=== PATIENT | male | born 1945 | race Caucasian/White ===

== ENCOUNTER 2018-04-10 10:24 | Outpatient (CLI) | payer MEDICARE ==
[2018-04-10 19:42] LABS: ALBUMIN 3.9 g/dL (3.2-5.5); ALKALINE PHOSPHATASE 60 IU/L (42-121); ALT ALANINE AMINOTRANSFERASE 34 IU/L (10-60); AST ASPARTATE AMINOTRANSFERASE 35 IU/L (10-42); BILIRUBIN,TOTAL 1.6 mg/dL (0.2-1.0); BUN - BLOOD UREA NITROGEN 21 mg/dL (6-20); CALCIUM 9.3 mg/dL (8.5-10.3); CARBON DIOXIDE - CO2 25 mmol/L (21-32); CHLORIDE 105 mmol/L (101-111); CHOL/HDL RATIO 4.5 (<5.0); CHOLESTEROL 166 mg/dL; CREATININE 0.9 mg/dL (0.6-1.2); GFR - MDRD 82 (>89); GLUCOSE 97 mg/dL (70-100); HDL CHOLESTEROL 37 mg/dL; LDL CHOLESTEROL,CALCULATED 104 mg/dL; LDL/HDL RATIO 2.8 (<3.6); SODIUM 137 mmol/L (135-145); TOTAL PROTEIN 7.7 g/dL (6.7-8.2); VLDL CHOLESTEROL 25 mg/dL
== END 2018-04-10 10:25 | disposition home or self-care (01) ==
LOC: LAB.F 10:24
PROVIDERS: ATTEND Internal Medicine
DX: E78.00 Pure hypercholesterolemia, unspecified (principal); E03.9 Hypothyroidism, unspecified
CPT/HCPCS: 80053; 80061; 83721; 84443

== ENCOUNTER 2018-09-19 12:15 | Emergency (ER) | payer MEDICARE ==
[2018-09-19 12:35] LABS: BILIRUBIN,URINE NEGATIVE (NEGATIVE); GLUCOSE, URINE (UA) NEGATIVE (NEGATIVE); KETONES,URINE (UA) NEGATIVE (NEGATIVE); LEUKOCYTE ESTERASE, URINE NEGATIVE (NEGATIVE); NITRITE,URINE NEGATIVE (NEGATIVE); OCCULT BLOOD,URINE NEGATIVE (NEGATIVE); PH,URINE 5.5 PH (5.0-7.5); PROTEIN,URINE NEGATIVE (NEGATIVE); UROBILINOGEN,URINE 0.2 (NORMAL) E.U./dL (NORMAL)
[2018-09-19 12:40] LABS: CLARITY,URINE CLEAR (CLEAR)
[2018-09-19] MEDS ORDERED: ACETAMINOPHEN 1,000 MG/100 ML 100 ML IV STA (13:07)
[2018-09-19] MEDS ORDERED: IOVERSOL 320 100 ML VIAL IVP ONE ×2 (13:15→14:23)
[2018-09-19 13:59] LABS: ALBUMIN 4.4 g/dL (3.2-5.5); ALBUMIN/GLOBULIN RATIO 1.3 (1.0-2.2); CALCIUM 9.4 mg/dL (8.5-10.3); CREATININE 0.8 mg/dL (0.6-1.2); TOTAL PROTEIN 7.8 g/dL (6.7-8.2)
[2018-09-19 14:07] LABS: BASOPHILS % (AUTO) 0.4 %; EOSINOPHILS # (AUTO) 0.2 10^3/uL (0.0-0.7); EOSINOPHILS % (AUTO) 3.1 %; HGB - HEMOGLOBIN 14.5 g/dL (14.0-18.0); LYMPHOCYTES # (AUTO) 1.5 10^3/uL (1.5-3.5); LYMPHOCYTES % (AUTO) 28.1 %; MEAN CORPUSCULAR HEMOGLOBIN 30.9 pg (27.0-31.0); MEAN CORPUSCULAR HGB CONC 34.6 g/dL (32.0-36.0); MEAN CORPUSCULAR VOLUME 89.3 fL (80.0-94.0); MEAN PLATELET VOLUME 7.6 fL (7.4-11.4); MONOCYTES # (AUTO) 0.5 10^3/uL (0.0-1.0); NEUTROPHILS # (AUTO) 3.3 10^3/uL (1.5-6.6); NEUTROPHILS % (AUTO) 59.4 %; PLT - PLATELET COUNT 221 10^3/uL (130-450); RED CELL DISTRIBUTION WIDTH 14.3 % (12.0-15.0); WHITE BLOOD COUNT 5.5 x10^3/uL (4.8-10.8)
--- NOTE | 2018-09-19 14:35 | ED Physician Documentation ---
History of Present Illness - Stated complaint Stated Complaint: LOWER RT SIDE BACK PX - Chief complaint Chief Complaint: Back Pain - Additonal information Additional information: hx from pt 73 male known infrarenal aneurysm 2 weeks of insidious onset back pain sharp worse with ROMB no abd pain no urinary incont dysuria hematuria no numbness to legs or groin desiree weakness no fever no recent surgery dental work IV IM meds / drugs Review of Systems Constitutional: denies: Fever, Chills Cardiac: denies: Chest pain / pressure Respiratory: denies: Dyspnea GI: denies: Abdominal Pain, Nausea, Vomiting : denies: Dysuria, Incontinent, Hematuria Immunocompromised: denies: Immunocompromised PD PAST MEDICAL HISTORY - Past Medical History Cardiovascular: Hypertension, High cholesterol, Other Respiratory: Sleep apnea Endocrine/Autoimmune: Other GI: Cholelithiasis : Benign prostate hypertrophy HEENT: None Psych: None Musculoskeletal: Other Derm: None Other Past Medical History: AAA - Past Surgical History Past Surgical History: Yes General: Cholecystectomy, Other HEENT: Tonsil/Adenoidectomy, Other - Present Medications Home Medications: Ambulatory Orders Medication Instructions Recorded Confirmed Simvastatin 20 mg PO DAILY 06/07/13 09/19/18 Doxazosin Mesylate 4 mg PO DAILY 08/11/14 09/19/18 Levothyroxine Sodium 1 tab PO DAILY 08/11/14 09/19/18 Aspirin [Aspir-Low] 81 mg DAILY 01/14/16 09/19/18 Cyclobenzaprine [Flexeril] 10 mg PO TID PRN #20 tablet 09/19/18 Lanolin 1 applic TP TID PRN #30 oint...g. 09/19/18 Lidocaine Patch 5% [Lidoderm Patch] 1 patch TOP DAILY PRN #10 patch 09/19/18 - Allergies Allergies/Adverse Reactions: Allergies Allergy/AdvReac Type Severity Reaction Status Date / Time No Known Drug Allergies Allergy Verified 09/19/18 12:27 - Social History Does the pt smoke?: No Smoking Status: Never smoker Does the pt drink ETOH?: No Does the pt have substance abuse?: No - Immunizations Immunizations are current?: Yes - POLST Patient has POLST: No PD ED PE NORMAL - Vitals Vital signs reviewed: Yes - Neck Neck: Supple, no meningeal sign - Cardiac Cardiac: RRR - Respiratory Respiratory: No respiratory distress - Abdomen Abdomen: Soft, Non tender, Other (no pulsatile mass) - Back Back: No spinal TTP, Other (R flank region TT s redness swellign or warmth, mild mid L spine TTP also s redness swellign warmth) - Derm Derm: Normal color - Neuro Neuro: Alert and oriented X 3, test cell technician 2-12 intact, No motor deficit, No sensory deficit, Normal speech, Other (nl sensation denies saddle anesthesia, hiip flexion knee ext foot dorsi plantar ext all 5/5, no clonus, neg SLR gretchen) Eye Opening: Spontaneous Motor: Obeys Commands Verbal: Oriented GCS Score: 15 Results - Vitals Vitals: Vital Signs - 24 hr 09/19/18 09/19/18 12:24 14:58 Temperature 36.3 C L Heart Rate 67 57 L Respiratory 18 18 Rate Blood Pressure 148/65 H 134/82 H O2 Saturation 98 96 Oxygen O2 Source Room air - Labs Labs: Laboratory Tests 09/19/18 09/19/18 09/19/18 12:30 13:39 13:39 WBC 5.5 RBC 4.70 Hgb 14.5 Hct 42.0 MCV 89.3 MCH 30.9 MCHC 34.6 RDW 14.3 Plt Count 221 MPV 7.6 Neut # (Auto) 3.3 Lymph # (Auto) 1.5 [place] # (Auto) 0.5 Eos # (Auto) 0.2 Baso # (Auto) 0.0 Absolute Nucleated RBC 0.00 Nucleated RBC % 0.1 Sodium 136 Potassium 4.4 Chloride 103 Carbon Dioxide 25 Anion Gap 8.0 BUN 26 H Creatinine 0.8 Estimated GFR (MDRD) 94 Glucose 99 Calcium 9.4 Total Bilirubin 1.0 AST 40 ALT 37 Alkaline Phosphatase 74 Total Protein 7.8 Albumin 4.4 Globulin 3.4 Albumin/Globulin Ratio 1.3 Lipase 34 Urine Color YELLOW Urine Clarity CLEAR Urine pH 5.5 Ur Specific [place] 1.015 Urine Protein NEGATIVE Urine Glucose (UA) NEGATIVE Urine Ketones NEGATIVE Urine Occult Blood NEGATIVE Urine Nitrite NEGATIVE Urine Bilirubin NEGATIVE Urine Urobilinogen 0.2 (NORMAL) Ur Leukocyte Esterase NEGATIVE Ur Microscopic Review NOT INDICATED Urine Culture Comments NOT INDICATED - Rads (name of study) CTA AP Radiology: See rad report (stable 2.4 infrarenal AAA without rupture, chronic unchanged thrombus and dissection flap, renal cysts otherwsie solid organs unremarkable, no acute process) PD MEDICAL DECISION MAKING - ED course ED course: thankfully CT shows AAA is unchanged neg UA CT neg for acute process will dc pt also concerned about dry cracked lips he has seen PMD and derm and tried all sorts of ointments and meds but sx persist lips dry cracke small erythema to cornes of mouth, no lesions will try lanolin Departure - Departure Disposition: Home, Self Care Clinical Impression: Back pain Qualifiers: Back pain location: low back pain Chronicity: acute Back pain laterality: right Sciatica presence: without sciatica Qualified Code(s): M54.5 - Low back pain Condition: Good Instructions: ED Low Back Pain Injury Prescriptions: Cyclobenzaprine [Flexeril] 10 mg PO TID PRN #20 tablet PRN Reason: Spasms Lanolin 1 applic TP TID PRN #30 oint...g. PRN Reason: cracked lips Lidocaine Patch 5% [Lidoderm Patch] 1 patch TOP DAILY PRN #10 patch PRN Reason: pain Comments: Thankfully the CT did not show any change in the aneurysm - it is exactly the same as before about 2.4 cm in size with a chronic flap and thrombus - all unchanged from prior imaging according to the radiologist Also the kidney looked fine - some cysts but no stones to cause pain So the pain is likely muscular after all. I have prescribed patches you can wear up to 12 hr a day and a muscle relaxant and you can also take tylenol Follow up with your PMD as needed. Return if worse
--- NOTE | 2018-09-19 14:41 | CT Report ---
Reason: known AAA back pain Procedure Date: 09/19/2018 Accession Number: [id number] / [id number] Procedure: CT - Abdomen/Pelvis Angio CPT Code: FULL RESULT: EXAM: CT ANGIOGRAM ABDOMEN AND PELVIS WITH CONTRAST EXAM DATE: 09/19/2018 02:20 PM. CLINICAL HISTORY: Abdominal aortic aneurysm without rupture. COMPARISONS: ABDOMEN ANGIO 01/14/2016 9:09 PM. TECHNIQUE: Routine helical CT angiogram imaging was performed through the abdomen and pelvis in the arterial phase. IV contrast: 100 mL Optiray 320. Enteric contrast: No. Reconstructions: Coronal, sagittal, and 3D MIP reconstructions. In accordance with CT protocol optimization, one or more of the following dose reduction techniques were utilized for this exam: automated exposure control, adjustment of mA and/or KV based on patient size, or use of iterative reconstructive technique. FINDINGS: Vasculature: As before, the abdominal aorta demonstrates moderate calcified and noncalcified atherosclerotic plaque formation similar to prior CT. Mural thrombus and ectasia involving the infrarenal abdominal aorta is again seen, unchanged. The abdominal aorta measures up to 2.4 cm in diameter at this level. There is again noted to be displaced intimal calcification consistent with non-propagating chronic dissection flap (image 80/7). The celiac, SMA, and JESUS branches are diffusely patent. There is mild narrowing of the right renal artery likely due to median arcuate compression. The left renal artery is diffusely patent. The kidneys symmetrically enhance. The iliac and visualized femoral arterial vasculature demonstrates mild tortuosity and minor calcified atherosclerotic disease, otherwise intact. Lung Bases: Normal. Abdominal Solid Organs: Cholecystectomy changes are seen. There is no biliary dilation. A few peripelvic cysts are suggested in the left kidney. Otherwise, liver, spleen, pancreas, adrenal glands, and kidneys are normal in size and demonstrate no masses or abnormal enhancement. Peritoneal Cavity: There is extensive predominantly sigmoid diverticulosis without evidence of diverticulitis. There is no obstruction or ileus. No free fluid or free air. The appendix is normal. Pelvic Organs: Prostate gland is borderline enlarged. The bladder and remainder pelvic structures are unremarkable. Bones: There is moderate diffuse degenerative spondylosis changes of the lumbar spine. Prominent posterior endplate spurring at L1-L2 and L2-L3 causes at least mild narrowing of the bony central canal. Appearance is similar to prior study. Other: None. IMPRESSION: 1. No acute intra-abdominal pathology including no ruptured aortic aneurysm. 2. Moderate atherosclerotic disease of the infrarenal abdominal aorta including stable chronic non-propagating small dissection flap and associated focal ectasia of the abdominal aorta up to 2.4 cm. 3. Moderate multilevel degenerative spondylosis changes of the lumbar spine similar to 01/14/2016 exam. No acute osseous abnormality. 4. Extensive sigmoid diverticulosis without diverticulitis. RADIA
[2018-09-19] MEDS ORDERED: LIDOCAINE PATCH 5% TOP STA (15:17)
[2018-09-19 15:42] VITALS: BP 130/74
== END 2018-09-19 15:41 | disposition home or self-care (01) ==
LOC: ED 12:15
DX: M54.5 Low back pain (principal); I71.4 Abdominal aortic aneurysm, without rupture; I10 Essential (primary) hypertension; E78.00 Pure hypercholesterolemia, unspecified; N28.1 Cyst of kidney, acquired
CPT/HCPCS: 36415; 74174; 80053; 81003; 83690; 85025; 96374; 99283; A9270; J0131; Q9967; 81001; 87086

== ENCOUNTER 2019-05-17 10:17 | Outpatient (CLI) | payer MEDICARE ==
[2019-05-17 18:10] LABS: ALBUMIN/GLOBULIN RATIO 1.2 (1.0-2.2); ALKALINE PHOSPHATASE 64 IU/L (42-121); ALT ALANINE AMINOTRANSFERASE 32 IU/L (10-60); AST ASPARTATE AMINOTRANSFERASE 29 IU/L (10-42); BILIRUBIN,TOTAL 1.2 mg/dL (0.2-1.0); BUN - BLOOD UREA NITROGEN 23 mg/dL (6-20); CALCIUM 9.3 mg/dL (8.5-10.3); CARBON DIOXIDE - CO2 26 mmol/L (21-32); CHLORIDE 108 mmol/L (101-111); CHOL/HDL RATIO 3.2 (<5.0); CHOLESTEROL 123 mg/dL; GFR - MDRD 73 (>89); GLUCOSE 104 mg/dL (70-100); HDL CHOLESTEROL 38 mg/dL; LDL CHOLESTEROL,CALCULATED 69 mg/dL; LDL/HDL RATIO 1.8 (<3.6); SODIUM 140 mmol/L (135-145); TOTAL PROTEIN 7.3 g/dL (6.7-8.2); VLDL CHOLESTEROL 16 mg/dL
--- NOTE | 2019-05-18 10:12 | XRAY Report ---
Reason: OSTEROARTHRITIS, HIPS, BILATERAL Procedure Date: 05/17/2019 Accession Number: [id number] / [id number] Procedure: XRS - Hips 2V BILAT CPT Code: FULL RESULT: EXAM: BILATERAL HIP RADIOGRAPHY EXAM DATE: 05/17/2019 11:07 AM. CLINICAL HISTORY: Osteoarthritis, hips, bilateral. COMPARISON: None. TECHNIQUE: 2 views each. FINDINGS: Bones: Normal. No fractures or bone lesion. Right Hip: Mild joint space narrowing without significant subchondral sclerotic changes at the acetabulum. No significant osteophytic spurring. Left Hip: Moderate narrowing of the joint space, with subchondral sclerotic change of the acetabulum and minimal subchondral cystic changes of the femoral head. Soft Tissues: Normal. No soft tissue swelling. IMPRESSION: Mild right and moderate left degenerative changes at the hips. [facility]
== END 2019-05-17 10:18 | disposition home or self-care (01) ==
LOC: LAB.S 10:17 → DI.S 10:18
PROVIDERS: ATTEND Internal Medicine
DX: M16.0 Bilateral primary osteoarthritis of hip (principal); E78.00 Pure hypercholesterolemia, unspecified; E03.9 Hypothyroidism, unspecified
CPT/HCPCS: 36415; 73521; 80053; 80061; 83721; 84443

== ENCOUNTER 2020-07-17 11:36 | Outpatient (CLI) | payer MEDICARE ==
[2020-07-17 15:08] LABS: BASOPHILS % (AUTO) 0.4 %; EOSINOPHILS # (AUTO) 0.1 10^3/uL (0.0-0.7); EOSINOPHILS % (AUTO) 1.4 %; HGB - HEMOGLOBIN 15.1 g/dL (14.0-18.0); LYMPHOCYTES # (AUTO) 1.9 10^3/uL (1.5-3.5); LYMPHOCYTES % (AUTO) 26.7 %; MEAN CORPUSCULAR HEMOGLOBIN 30.8 pg (27.0-31.0); MEAN CORPUSCULAR VOLUME 93.3 fL (80.0-94.0); MEAN PLATELET VOLUME 9.3 fL (7.4-11.4); MONOCYTES # (AUTO) 0.5 10^3/uL (0.0-1.0); MONOCYTES % (AUTO) 7.7 %; NEUTROPHILS # (AUTO) 4.4 10^3/uL (1.5-6.6); NEUTROPHILS % (AUTO) 63.4 %; PLT - PLATELET COUNT 248 10^3/uL (130-450); RED BLOOD COUNT 4.91 10^6/uL (4.70-6.10); RED CELL DISTRIBUTION WIDTH 13.6 % (12.0-15.0)
[2020-07-17 15:22] LABS: ALBUMIN 4.3 g/dL (3.2-5.5); ALBUMIN/GLOBULIN RATIO 1.1 (1.0-2.2); ALKALINE PHOSPHATASE 68 IU/L (42-121); ALT ALANINE AMINOTRANSFERASE 32 IU/L (10-60); AST ASPARTATE AMINOTRANSFERASE 25 IU/L (10-42); BILIRUBIN,TOTAL 1.6 mg/dL (0.2-1.0); BUN - BLOOD UREA NITROGEN 26 mg/dL (6-20); CARBON DIOXIDE - CO2 24 mmol/L (21-32); CHLORIDE 106 mmol/L (101-111); CHOL/HDL RATIO 4.5 (<5.0); CHOLESTEROL 150 mg/dL; GLUCOSE 98 mg/dL (70-100); HDL CHOLESTEROL 33 mg/dL; LDL CHOLESTEROL,CALCULATED 86 mg/dL; LDL/HDL RATIO 2.6 (<3.6); SODIUM 138 mmol/L (135-145); TOTAL PROTEIN 8.1 g/dL (6.7-8.2); VLDL CHOLESTEROL 31 mg/dL
== END 2020-07-17 11:37 | disposition home or self-care (01) ==
LOC: LAB.S 11:36
PROVIDERS: ATTEND Internal Medicine
DX: Z00.00 Encounter for general adult medical examination without abnormal findings (principal); E78.5 Hyperlipidemia, unspecified; Z12.5 Encounter for screening for malignant neoplasm of prostate; E03.9 Hypothyroidism, unspecified
CPT/HCPCS: 36415; 80053; 80061; 84443; 85025; G0103; 83721; 84153

== ENCOUNTER 2021-04-28 09:58 | Outpatient (CLI) | payer MEDICARE ==
[2021-04-28 14:23] LABS: BASOPHILS % (AUTO) 0.5 %; EOSINOPHILS # (AUTO) 0.2 10^3/uL (0.0-0.7); EOSINOPHILS % (AUTO) 3.3 %; HGB - HEMOGLOBIN 14.6 g/dL (14.0-18.0); LYMPHOCYTES # (AUTO) 1.6 10^3/uL (1.5-3.5); LYMPHOCYTES % (AUTO) 26.7 %; MEAN CORPUSCULAR HEMOGLOBIN 30.4 pg (27.0-31.0); MEAN CORPUSCULAR HGB CONC 32.4 g/dL (32.0-36.0); MEAN CORPUSCULAR VOLUME 93.8 fL (80.0-94.0); MEAN PLATELET VOLUME 9.8 fL (7.4-11.4); MONOCYTES # (AUTO) 0.5 10^3/uL (0.0-1.0); MONOCYTES % (AUTO) 8.4 %; NEUTROPHILS # (AUTO) 3.6 10^3/uL (1.5-6.6); NEUTROPHILS % (AUTO) 60.9 %; PLT - PLATELET COUNT 223 10^3/uL (130-450); RED CELL DISTRIBUTION WIDTH 13.5 % (12.0-15.0); WHITE BLOOD COUNT 5.8 x10^3/uL (4.8-10.8)
[2021-04-28 14:40] LABS: ALBUMIN/GLOBULIN RATIO 1.2 (1.0-2.2); ALKALINE PHOSPHATASE 69 IU/L (42-121); ALT ALANINE AMINOTRANSFERASE 28 IU/L (10-60); AST ASPARTATE AMINOTRANSFERASE 22 IU/L (10-42); BILIRUBIN,TOTAL 1.1 mg/dL (0.2-1.0); BUN - BLOOD UREA NITROGEN 24 mg/dL (6-20); CALCIUM 9.7 mg/dL (8.5-10.3); CARBON DIOXIDE - CO2 25 mmol/L (21-32); CHLORIDE 108 mmol/L (101-111); CHOL/HDL RATIO 4.4 (<5.0); CHOLESTEROL 157 mg/dL; CREATININE 0.9 mg/dL (0.6-1.2); GFR - MDRD 82 (>89); GLUCOSE 96 mg/dL (70-100); HDL CHOLESTEROL 36 mg/dL; LDL CHOLESTEROL,CALCULATED 87 mg/dL; LDL/HDL RATIO 2.4 (<3.6); POTASSIUM 4.2 mmol/L (3.5-5.0); SODIUM 142 mmol/L (135-145); TOTAL PROTEIN 7.4 g/dL (6.7-8.2); TRIGLYCERIDES 171 mg/dL; VLDL CHOLESTEROL 34 mg/dL
[2021-04-28 14:45] LABS: THYROID STIMULATING HORMONE 1.46 uIU/mL (0.34-5.60)
== END 2021-04-28 09:59 | disposition home or self-care (01) ==
LOC: LAB.S 09:58
PROVIDERS: ATTEND Internal Medicine
DX: E78.5 Hyperlipidemia, unspecified (principal); Z79.899 Other long term (current) drug therapy; Z12.5 Encounter for screening for malignant neoplasm of prostate; E03.9 Hypothyroidism, unspecified
CPT/HCPCS: 36415; 80053; 80061; 84443; 85025; G0103; 83721; 84153

== ENCOUNTER 2021-05-04 09:39 | Outpatient (CLI) | payer MEDICARE ==
--- NOTE | 2021-05-04 11:01 | XRAY Report ---
PROCEDURE: Hips 2V BILAT INDICATIONS: HIP PX TECHNIQUE: 5 views of the hip were acquired. COMPARISON: None FINDINGS: Bones: No fractures or dislocations. Moderate bilateral hip joint osteoarthritic changes are seen wi th joint space narrowing, subchondral sclerosis and marginal osteophyte formation. No evidence of tanya scular necrosis of femoral head. No suspicious bony lesions. The visualized pelvic ring appears inta ct. Soft tissues: No suspicious soft tissue calcifications or masses. IMPRESSION: Moderate bilateral hip joint osteoarthritis. No hip fracture or dislocation. No evidence of avascular necrosis. Reviewed by: Jacky Wilkes MD on 05/04/2021 11:00 AM PDT Approved by: Jacky Wilkes MD on 05/04/2021 11:00 AM PDT Station ID: [id number]
== END 2021-05-04 09:40 | disposition home or self-care (01) ==
LOC: DI.S 09:39
PROVIDERS: ATTEND Internal Medicine
DX: M16.0 Bilateral primary osteoarthritis of hip (principal)

== ENCOUNTER 2022-07-13 13:07 | Outpatient (CLI) | payer MEDICARE ==
[2022-07-13 20:05] LABS: BASOPHILS % (AUTO) 0.4 %; EOSINOPHILS # (AUTO) 0.3 10^3/uL (0.0-0.7); EOSINOPHILS % (AUTO) 3.5 %; HCT - HEMATOCRIT 46.3 % (42.0-52.0); LYMPHOCYTES % (AUTO) 27.6 %; MEAN CORPUSCULAR HEMOGLOBIN 30.4 pg (27.0-31.0); MEAN CORPUSCULAR HGB CONC 32.4 g/dL (32.0-36.0); MEAN CORPUSCULAR VOLUME 93.7 fL (80.0-94.0); MEAN PLATELET VOLUME 10.1 fL (7.4-11.4); MONOCYTES # (AUTO) 0.5 10^3/uL (0.0-1.0); MONOCYTES % (AUTO) 6.6 %; NEUTROPHILS # (AUTO) 4.4 10^3/uL (1.5-6.6); NEUTROPHILS % (AUTO) 61.6 %; PLT - PLATELET COUNT 231 10^3/uL (130-450); RED BLOOD COUNT 4.94 10^6/uL (4.70-6.10); RED CELL DISTRIBUTION WIDTH 13.8 % (12.0-15.0); WHITE BLOOD COUNT 7.1 x10^3/uL (4.8-10.8)
[2022-07-13 20:24] LABS: ALBUMIN/GLOBULIN RATIO 1.2 (1.0-2.2); ALKALINE PHOSPHATASE 67 IU/L (42-121); ALT ALANINE AMINOTRANSFERASE 32 IU/L (10-60); AST ASPARTATE AMINOTRANSFERASE 31 IU/L (10-42); BILIRUBIN,TOTAL 0.9 mg/dL (0.2-1.0); BUN - BLOOD UREA NITROGEN 24 mg/dL (6-20); CALCIUM 9.3 mg/dL (8.5-10.3); CARBON DIOXIDE - CO2 25 mmol/L (21-32); CHLORIDE 107 mmol/L (101-111); CHOL/HDL RATIO 4.1 (<5.0); CHOLESTEROL 153 mg/dL; GFR - MDRD 72 (>89); GLUCOSE 111 mg/dL (70-100); HDL CHOLESTEROL 37 mg/dL; LDL CHOLESTEROL,CALCULATED 65 mg/dL; LDL/HDL RATIO 1.8 (<3.6); POTASSIUM 4.1 mmol/L (3.5-5.0); SODIUM 139 mmol/L (135-145); TOTAL PROTEIN 7.3 g/dL (6.7-8.2); TRIGLYCERIDES 257 mg/dL; VLDL CHOLESTEROL 51 mg/dL
[2022-07-13 20:34] LABS: THYROID STIMULATING HORMONE 1.29 uIU/mL (0.34-5.60)
== END 2022-07-13 13:08 | disposition home or self-care (01) ==
LOC: LAB.S 13:07
PROVIDERS: ATTEND Registered Nurse
DX: E78.5 Hyperlipidemia, unspecified (principal); Z79.899 Other long term (current) drug therapy; Z12.5 Encounter for screening for malignant neoplasm of prostate; N40.1 Benign prostatic hyperplasia with lower urinary tract symptoms; N13.8 Other obstructive and reflux uropathy; E03.9 Hypothyroidism, unspecified
CPT/HCPCS: 36415; 80053; 80061; 84443; 85025; G0103; 83721; 84153

== ENCOUNTER 2022-08-17 12:49 | Outpatient (CLI) | payer MEDICARE ==
--- NOTE | 2022-08-17 14:15 | Ultrasound Report ---
PROCEDURE: Head or Neck Soft Tissue INDICATIONS: PAROTID MASS TECHNIQUE: Real time scanning was performed of the neck region of interest, with image documentation . COMPARISON: None. FINDINGS: In the area of palpable abnormality anterior to the right ear, there is an ovoid, horizonta lly oriented mass isoechoic to subcutaneous tissue measuring 2.2 x 0.7 x 1.0 cm. There is no posterio r shadowing or infiltration of the deep tissue plane visible. Cord Doppler imaging demonstrates no in ternal vascularity. IMPRESSION: 1. Possible 2.2 cm lipoma in the area of palpable abnormality. If there is clinical suspicion for mor e concerning process, contrast-enhanced CT of neck soft tissues is recommended. Reviewed by: Lavinia Wyman MD on 08/17/2022 2:13 PM PST Approved by: Lavinia Wyman MD on 08/17/2022 2:13 PM PST Station ID: [id number]
== END 2022-08-17 12:50 | disposition home or self-care (01) ==
LOC: DI 12:49
PROVIDERS: ATTEND Registered Nurse
DX: K11.8 Other diseases of salivary glands (principal)

== ENCOUNTER 2024-04-22 17:13 | Outpatient (CLI) | payer MEDICARE | END 2024-04-22 17:14 | disposition short-term general hospital (02) | LOC: EMS 17:13 | DX: R10.11 Right upper quadrant pain (principal); R61 Generalized hyperhidrosis | CPT/HCPCS: A0425; A0427 ==